=== PATIENT | male | born 1970 | race Caucasian/White ===

== ENCOUNTER 2017-10-02 15:03 | Emergency (ER) | payer OTHER ==
[~2017-10-02] VITALS: Ht 177.8 cm; Wt 123.0 kg
[~2017-10-02 15:03] MED LIST: ASPI1TAB83 PO; LISI-792 PO
[2017-10-02 16:13] VITALS: BP 201/103; PULSE 76; TEMP 36.7; O2SAT 96; Ht 177.8 cm; Wt 123.0 kg
[2017-10-02] MEDS ORDERED: HYDR-5688 PO (16:24)
[2017-10-02] MEDS ORDERED: AMOX500C3 PO (16:24)
[2017-10-02] MEDS ORDERED: IBUP-1050 PO (16:25)
[2017-10-02] MEDS ORDERED: NORCO 5/325MG HOME PACK PO ONE (16:30)
[2017-10-02] MEDS ORDERED: AMOXICILLIN HOME PACK 250 MG/TAB PO ONE (16:30)
--- NOTE | 2017-10-02 18:15 | EMERGENCY ROOM VISIT NOTE ---
ED Visit Note First contact with patient: 16:16 CHIEF COMPLAINT: Toothache HISTORY OF PRESENT ILLNESS: This 47-year-old male patient presented to the emergency department with a progressive toothache for past 2-3 days. The patient believes it is coming from his left upper teeth. The pain is now steady and severe and radiates to the face. The patient has a dentist appointment set up tomorrow. They rate their pain a sharp 9/10 and the ibuprofen and Tylenol they have been taking has not relieved the pain. Denies facial swelling or fever. The patient denies any discharge from the mouth. REVIEW OF SYSTEMS: A 6 system review of systems was completed with positives and pertinent negatives listed in the HPI. ALLERGIES: No known allergies MEDICATIONS: No chronic medications PMH: Otherwise healthy SOCIAL HISTORY: Employed and lives locally PHYSICAL EXAM: Vitals are noted on the nurse's note and reviewed by myself. Vital signs stable. GENERAL: White male, in no acute distress, nondiaphoretic, well-developed well- nourished. Mouth: The left upper first molar #14 tooth is very carious and the gum is swollen and tender around it, without any discharge or signs of an abscess. The remainder of the pharynx and tonsils are without erythema, edema, or exudate. The airway is patent. There is no facial swelling, cervical or submandibular lymphadenopathy. The patient appears uncomfortable and in pain. The patient has overall poor dental hygiene. EARS: External auditory canals clear, tympanic membranes pearly gill without erythema or effusion bilaterally. HEART: Regular rate and rhythm without murmur gallop or rub LUNG: Clear to auscultation bilateral ED COURSE: Physical exam and history were performed. Nursing notes and EMR were reviewed. The patient has overall poor dentition with pain of the left upper jaw. No obvious abscess or evidence of Arturo's is noted. The patient has an appointment tomorrow and will be given a course of amoxicillin and Vicodin. He is to keep his appointment as scheduled. He was otherwise invited back to the ER with any new, worsening, or concerning symptoms. Problem List Medical Problems: (1) Benign hypertension Status: Chronic (2) Cholecystectomy Status: Resolved (3) Hepatitis Status: Resolved Current/Historical Medications Scheduled Amoxicillin (Amoxil), 500 MG PO TID Scheduled PRN Hydrocodone/Acetaminophen 5MG/325MG ([place] 5MG/325MG), 1 TABLET PO Q6 PRN for Pain Ibuprofen (Advil), 400-600 MG PO Q6H PRN for Pain Allergies Coded Allergies: No Known Allergies (Unverified , 11/13/12) Vital Signs Date Time Temp Pulse Resp B/P (MAP) Pulse Ox O2 Delivery O2 Flow Rate FiO2 10/02/17 16:13 36.7 76 18 201/103 96 Room Air Departure Information Impression Primary Impression: Pain due to dental caries Dispostion Home / Self-Care Condition GOOD Prescriptions Amoxicillin (AMOXIL) 500 Mg Cap 500 MG PO TID for 10 Days, #30 CAP Prov: Ishan Albright PA-C 10/02/17 Hydrocodone/Acetaminophen 5MG/325MG ([place] 5MG/325MG) Tab 1 TABLET PO Q6 Y for Pain for 3 Days, #12 TAB For Initial Treatment Prov: Ishan Albright PA-C 10/02/17 Forms HOME CARE DOCUMENTATION FORM, IMPORTANT VISIT INFORMATION Patient Instructions My [facility] Additional Instructions You were seen and evaluated today on an emergency basis only. This is not a substitute for, or an effort to provide, complete comprehensive medical care. It is not possible to recognize and treat all injuries or illnesses in a single emergency department visit. For this reason it is recommended that you followup with your dentist tomorrow for a recheck. Take amoxicillin 500 mg 3 times daily for 10 days For baseline pain relief you may alternate ibuprofen and acetaminophen every 4 hours for pain control. Take 600 mg ibuprofen (Advil) and then 4 hours later take 1000 mg acetaminophen (Tylenol). Do not take more than 3000 mg acetaminophen in a single day. [place] (hydrocodone/acetaminophen) 5/325 mg every 6 hours as needed for worsening breakthrough pain. Do not drink or drive on [place]. This medication will likely make you tired. Do not take [place] and Tylenol at the same time as both contain acetaminophen. [place] may cause constipation. You may wish to take an [id number] stool softener like Colace if this occurs. You are welcome to return to the emergency department anytime with new, worsening, or concerning symptoms.
== END 2017-10-02 16:37 | disposition home or self-care (01) ==
LOC: C.EDB 15:03 → C.EDD 16:37
DX: K02.9 Dental caries, unspecified (principal); I10 Essential (primary) hypertension

== ENCOUNTER 2017-10-03 05:49 | Emergency (ER) | payer OTHER ==
[~2017-10-03] VITALS: Ht 177.8 cm; Wt 121.4 kg
[~2017-10-03 05:49] MED LIST changes: +AMOX500C3 PO; +HYDR-5688 PO; +IBUP-1050 PO
[2017-10-03 05:52] VITALS: TEMP 36.8; Ht 177.8 cm; Wt 121.4 kg
[2017-10-03] MEDS ORDERED: KETOROLAC TROMETHAMINE 30 MG/ML VIAL IV STA (06:04)
[2017-10-03] MEDS ORDERED: DEXAMETHASONE **PF** INJ 10 MG/ML VIAL IV ONE (06:15)
[2017-10-03] MEDS ORDERED: CLINDAMYCIN 600 MG/54 ML D5W IV ONE (06:15)
[2017-10-03 06:47] LABS: BASO % 0.2 %; BASO ABS # 0.03 K/uL (0-0.2); EOS % 1.1 %; EOS ABS # 0.13 K/uL (0-0.5); HEMATOCRIT 46.1 % (42-52); HEMOGLOBIN 16.5 g/dL (14.0-18.0); IG# 0.03 K/uL (0.00-0.02); LYMPH ABS # 2.43 K/uL (1.2-3.4); MEAN CELL VOLUME 83.2 fL (80-100); MEAN CORPUSCULAR HEMOGLOBIN 29.8 pg (25-34); MEAN CORPUSCULAR HGB CONC 35.8 g/dl (32-36); MEAN PLATELET VOLUME 9.5 fL (7.4-10.4); MONO % 7.7 %; MONO ABS # 0.93 K/uL (0.11-0.59); NEUT % 70.8 %; PLATELET COUNT 202 K/uL (130-400); RED CELL DISTRIBUTION WIDTH CV 12.6 % (11.5-14.5); RED CELL DISTRIBUTION WIDTH SD 37.7 fL (36.4-46.3); WHITE BLOOD COUNT 12.15 K/uL (4.8-10.8)
[2017-10-03 07:03] LABS: CALCIUM 8.5 mg/dl (8.5-10.1); CREATININE 1.07 mg/dl (0.60-1.40); POTASSIUM 3.8 mmol/L (3.5-5.1)
[2017-10-03 07:13] VITALS: BP 168/97; PULSE 78; O2SAT 97
--- NOTE | 2017-10-03 21:28 | EMERGENCY ROOM VISIT NOTE ---
History First contact with patient: 05:55 Chief Complaint: FACIAL PAIN/INJURY Stated Complaint: SWOLLEN FACE History of Present Illness The patient is a 47 year old male who presents to the Emergency Room with complaints of worsening dental pain with now facial swelling for the past few days. Patient states he has poor dentition and needs his front teeth pulled. Patient was seen here yesterday and placed on amoxicillin. Patient states he woke up this morning with left upper facial swelling. He describes the pain as throbbing, ranging in severity 7 out of 10 worse with palpation and better with rest. Patient denies fevers, dysphagia, chest pain, dyspnea, neck stiffness. Immunizations are current. Review of Systems An 10 system review of systems was completed with positives and pertinent negatives listed in the HPI. Past Medical/Surgical History Medical Problems: (1) Benign hypertension (2) Cholecystectomy (3) Hepatitis Social History Smoking Status: Current Every Day Smoker Alcohol Use: occasionally Marital Status: in relationship Housing Status: lives with significant other Occupation Status: employed Current/Historical Medications Scheduled Amoxicillin (Amoxil), 500 MG PO TID Scheduled PRN Hydrocodone/Acetaminophen 5MG/325MG ([place] 5MG/325MG), 1 TABLET PO Q6 PRN for Pain Ibuprofen (Advil), 400-600 MG PO Q6H PRN for Pain Physical Exam Vital Signs Date Time Temp Pulse Resp B/P (MAP) Pulse Ox O2 Delivery O2 Flow Rate FiO2 10/03/17 07:13 78 18 168/97 97 10/03/17 05:52 36.8 85 18 172/97 97 Room Air Physical Exam VITALS: Vitals are noted on the nurse's note and reviewed by myself. Vital signs hypertensive GENERAL: White male who appears uncomfortable, in no acute distress, nondiaphoretic, well-developed well-nourished. SKIN: The skin was without rashes, erythema, edema, or bruising. There is no tenting of the skin. Capillary reflex less than 2 seconds. HEAD: Normocephalic atraumatic. EARS: External auditory canals clear, tympanic membranes pearly gill without erythema or effusion bilaterally. EYES: Pupils equal round and reactive to light and accommodation. Conjunctivae without injection, sclerae without icterus. Extraocular movements intact. NOSE: Patent, turbinates without inflammation or discharge. Left maxillary sinus tenderness. MOUTH: Mucous membranes moist. Tonsils are not enlarged. Pharynx without erythema or exudate. Uvula midline. Airway patent. No Arturo's angina Dental exam: Extensive dental decay throughout with left upper gumline edematous and erythematous concerning for developing abscess over the left central incisor area. No Arturo angina NECK: Supple without nuchal rigidity. No lymphadenopathy. No thyromegaly. Cervical spine is nontender. No JVD. HEART: Regular rate and rhythm LUNGS: Clear to auscultation bilaterally without wheezes, rales or rhonchi. No dullness to percussion. No retractions or accessory muscle use. ABDOMEN: Positive bowel sounds x 4. Normal tympanic percussion. Soft, nontender, without masses or organomegaly. Malin sign negative. No guarding or rebound tenderness. MUSCULOSKELETAL: No muscle atrophy, erythema, or edema noted. NEURO: Patient was alert and oriented to person place and time. No focal neurological deficits. Medical Decision & Procedures Laboratory Results 10/03/17 06:35 Red Blood Count 5.54, Mean Corpuscular Volume 83.2, Mean Corpuscular Hemoglobin 29.8, Mean Corpuscular Hemoglobin Concent 35.8, Mean Platelet Volume 9.5, Neutrophils (%) (Auto) 70.8, Lymphocytes (%) (Auto) 20.0, Monocytes (%) (Auto) 7.7, Eosinophils (%) (Auto) 1.1, Basophils (%) (Auto) 0.2, Neutrophils # (Auto) 8.60, Lymphocytes # (Auto) 2.43, Monocytes # (Auto) 0.93, Eosinophils # (Auto) 0.13, Basophils # (Auto) 0.03 10/03/17 06:35 Test 10/03/17 06:35 White Blood Count 12.15 K/uL (4.8-10.8) Red Blood Count 5.54 M/uL (4.7-6.1) Hemoglobin 16.5 g/dL (14.0-18.0) Hematocrit 46.1 % (42-52) Mean Corpuscular Volume 83.2 fL (80-100) Mean Corpuscular Hemoglobin 29.8 pg (25-34) Mean Corpuscular Hemoglobin Concent 35.8 g/dl (32-36) Platelet Count 202 K/uL (130-400) Mean Platelet Volume 9.5 fL (7.4-10.4) Neutrophils (%) (Auto) 70.8 % Lymphocytes (%) (Auto) 20.0 % Monocytes (%) (Auto) 7.7 % Eosinophils (%) (Auto) 1.1 % Basophils (%) (Auto) 0.2 % Neutrophils # (Auto) 8.60 K/uL (1.4-6.5) Lymphocytes # (Auto) 2.43 K/uL (1.2-3.4) Monocytes # (Auto) 0.93 K/uL (0.11-0.59) Eosinophils # (Auto) 0.13 K/uL (0-0.5) Basophils # (Auto) 0.03 K/uL (0-0.2) RDW Standard Deviation 37.7 fL (36.4-46.3) RDW Coefficient of Variation 12.6 % (11.5-14.5) Immature Granulocyte % (Auto) 0.2 % Immature Granulocyte # (Auto) 0.03 K/uL (0.00-0.02) Anion Gap 9.0 mmol/L (3-11) Est Creatinine Clear Calc Drug Dose 112.7 ml/min Estimated GFR () 96.0 Estimated GFR (Non- 82.8 BUN/Creatinine Ratio 8.4 (10-20) Calcium Level 8.5 mg/dl (8.5-10.1) Medications Administered Medications (Trade) Dose Ordered Sig/Maurisio Route Start Time Stop Time Status Last Admin Dose Admin Clindamycin Phosphate (Cleocin 600mg/ 54ml D5W) 600 mg ONE ONCE IV 10/03/17 06:15 10/03/17 06:16 DC 10/03/17 06:15 600 MG Dexamethasone Sodium Phosphate (Dexamethasone Inj Pf) 10 mg NOW ONCE IV 10/03/17 06:15 10/03/17 06:16 DC 10/03/17 06:41 10 MG Ketorolac Tromethamine (Toradol Inj) 30 mg NOW STAT IV 10/03/17 06:04 10/03/17 06:07 DC 10/03/17 06:41 30 MG ED Course Prior records reviewed and summarized as above. Triage Nursing notes reviewed. The patient's history was concerning for swelling and redness of the skin. Differential diagnosis: Etiologies such as cellulitis, abscess, dental infection, dental care, Arturo's angina, as well as others were entertained.. Physical examination: The physical examination was consistent with periapical abscess with facial cellulitis ER treatment provided: Clindamycin, Toradol, Decadron On reassessment the patient felt better. Diagnostics interpreted by me: The labs revealed leukocytosis Hyperglycemia w/o DKA Consultation: A consultation was placed with Dr. Del Cid. The case was discussed and diagnostics were reviewed. The patient was discharged to Dr. Guillen office for further evaluation and treatment in stable condition. This appears to be periapical abscess with developing facial cellulitis. Patient was started on antibiotics. He was advised to go to oral surgery for definitive care for his infection. Patient had no signs of Arturo angina. No signs of airway compromise. He was afebrile and nontoxic. He was advised to return to the ER immediately for fevers, neck stiffness, dysphagia, worsening signs or symptoms or as needed. By the evaluation outlined above emergent etiologies such as Arturo's angina as well as others were deemed relatively unlikely. The pt informed about the findings as listed above. All questions were answered and pleased with the treatment. Return instructions were outlined and the patient was discharged in stable condition. Referral: The patient was referred to oral surgery now for a recheck of the current condition. Medical Decision As above [place] Drug Monitoring Program Search Results: patient reviewed within database, no issues identified Medication Reconcilliation Current Medication List: was personally reviewed by me Blood Pressure Screening Patient's blood pressure: Elevated blood pressure Blood pressure disposition: Referred to PCP Impression Primary Impression: Periapical abscess with facial involvement Departure Information Dispostion Home / Self-Care Condition GOOD Referrals Rick Gil M.D. (PCP) Patient Instructions My [facility] [place] [email or web address] Additional Instructions You need to call oral surgery's office at 8 AM and they will get you in today for definitive care for your dental and facial infection. Return to ER sooner for fevers, spreading infection, neck stiffness, worsening signs or symptoms or as needed.
== END 2017-10-03 07:14 | disposition home or self-care (01) ==
LOC: C.EDB 05:50
DX: K04.7 Periapical abscess without sinus (principal); K08.89 Other specified disorders of teeth and supporting structures; I10 Essential (primary) hypertension; F17.200 Nicotine dependence, unspecified, uncomplicated